=== PATIENT | female | born 1950 | race Caucasian/White ===

== ENCOUNTER → 2017-05-23 | Outpatient (CLI) | payer OTHER ==
[~2017-05-23] MED LIST: HYDR-3419 PO; LEVO88TA PO; PRAV40TA2 PO
[2017-05-23 12:29] LABS: THYROID STIMULATING HORMONE 0.202 uIu/ml (0.300-4.500)
== END | disposition home or self-care (01) ==
LOC: C.LAB1850 10:37
PROVIDERS: ATTEND Internal Medicine Endocrinology, Diabetes & Metabolism
DX: E89.0 Postprocedural hypothyroidism (principal); E06.3 Autoimmune thyroiditis; E05.00 Thyrotoxicosis with diffuse goiter without thyrotoxic crisis or storm

== ENCOUNTER → 2017-05-30 | Outpatient (CLI) | payer OTHER ==
[2017-05-31 12:42] LABS: THYROGLOBULIN <0.1 NG/ML (2.8-40.9)
== END | disposition home or self-care (01) ==
LOC: C.LAB1850 10:30
PROVIDERS: ATTEND Internal Medicine Endocrinology, Diabetes & Metabolism
DX: C73 Malignant neoplasm of thyroid gland (principal)

== ENCOUNTER → 2017-07-19 | Outpatient (CLI) | payer OTHER ==
--- NOTE | 2017-07-19 10:29 | DIAGNOSTIC IMAGING REPORT ---
Biliary ultrasound CLINICAL HISTORY: Diarrhea with fatty foods COMPARISON STUDY: No previous studies for comparison. FINDINGS: No pancreatic masses are visualized. There is no right-sided hydronephrosis. No hepatic masses are visualized. There is slight increase in hepatic echotexture. This may indicate hepatic steatosis. No gallstones are visualized. There is no ductal dilatation. The common bile duct measures 5 mm. IMPRESSION: Slight increase in hepatic echogenicity, a nonspecific finding often seen in hepatic steatosis. Otherwise unremarkable biliary ultrasound. Electronically signed by: Brigido Ceja M.D. 07/19/2017 10:27 AM Dictated Date/Time: 07/19/2017 10:26 AM
== END | disposition home or self-care (01) ==
LOC: C.ULTR 09:55
PROVIDERS: ATTEND Nurse Practitioner Family
DX: R19.7 Diarrhea, unspecified (principal)

== ENCOUNTER → 2017-08-02 | Outpatient (CLI) | payer OTHER ==
--- NOTE | 2017-08-02 14:19 | MAMMOGRAPHY REPORT ---
BILATERAL DIGITAL SCREENING MAMMOGRAM WITH CAD: 08/02/2017 CLINICAL HISTORY: Routine screening. Patient has no complaints. TECHNIQUE: Current study was also evaluated with a Computer Aided Detection (CAD) system. Bilateral CC and MLO views were obtained. COMPARISON: Comparison is made to exams dated: 07/31/2016 mammogram, 07/28/2015 mammogram, 07/27/2014 james mogram, 07/25/2013 mammogram, and 07/24/2012 mammogram - [facility]. BREAST COMPOSITION: There are scattered areas of fibroglandular density in both breasts. FINDINGS: No suspicious masses, calcifications, or areas of architectural distortion are noted in ei ther breast. There has been no significant interval change compared to prior exams. Again noted are postsurgical changes from bilateral reduction mammoplasty. Asymmetries in the left medial breast on the cc view and left lateral posterior breast on the cc view are stable. Surgical clips are again no satinder in the left upper outer quadrant. Linear scar markers denote scars on bilateral breasts. Bilate ral benign-appearing calcifications are not significantly changed. IMPRESSION: ACR BI-RADS CATEGORY 2: BENIGN There is no mammographic evidence of malignancy. A 1 year screening mammogram is recommended. The pa tient will receive written notification of the results. Approximately 10% of breast cancers are not detected with mammography. A negative mammographic report should not delay biopsy if a clinically suggestive mass is present. Smitha Juan M.D. /:08/02/2017 13:55:11 Drying Supervisor: Junie Hernandez, [facility] letter sent: Normal 1/2 BI-RADS Code: ACR BI-RADS Category 2: Benign
== END | disposition home or self-care (01) ==
LOC: C.MAMM 12:44
PROVIDERS: ATTEND Nurse Practitioner Family
DX: Z12.31 Encounter for screening mammogram for malignant neoplasm of breast (principal)